=== PATIENT | male | born 1970 | race African-American/Black ===

== ENCOUNTER 2019-03-05 09:45 | Emergency (ER) | payer SELFPAY ==
[2019-03-05 11:07] VITALS: BP 200/110
--- NOTE | 2019-03-05 11:14 | UC ---
Lower Extremity/Ankle HPI - HPI Summary HPI Summary: Flareup of gout over the past week which started in his right knee and then his left knee. The right knee has improved and the left knee is improving however over the past 2 days he has had flareup in his left ankle. He has no primary care provider - History of Current Complaint Chief Complaint: UCLowerExtremity Stated Complaint: LEFT LEG PAIN Time Seen by Provider: 03/05/19 10:16 Hx Obtained From: Patient Onset/Duration: Gradual Onset Severity Initially: Mild Severity Currently: Moderate Pain Intensity: 8 Aggravating Factor(s): Standing, Ambulation Alleviating Factor(s): Rest, Elevation, OTC Meds Able to Bear Weight: Yes - both pain and difficulty. - Allergies/Home Medications Allergies/Adverse Reactions: Allergies Allergy/AdvReac Type Severity Reaction Status Date / Time No Known Allergies Allergy Verified 03/05/19 10:11 PMH/Surg Hx/FS Hx/Imm Hx - Additional Past Medical History Additional PMH: Patient has a history of gout. Previously Healthy: Yes Cardiovascular History: Hypertension - Patient has not been on any antihypertensive medication for a long time. - Surgical History Surgical History: None - Family History Known Family History: Positive: Hypertension - Social History Occupation: Employed Part-time Alcohol Use: Daily Alcohol Amount: 6-PACK/DAY Substance Use Type: None Smoking Status (MU): Light Every Day Tobacco Smoker Type: Cigarettes Amount Used/How Often: 3 CIGS/WEEK Review of Systems All Other Systems Reviewed And Are Negative: Yes Motor: Positive: Decreased ROM - Due to flare up of gout in both knees and left ankle Neurovascular: Positive: Negative Musculoskeletal: Positive: Arthralgia, Decreased ROM, Other: - Right knee swelling has improved and is normal temperature and color, left knee is still swollen but improving, left ankle is now swollen, warm and tender. Neurological: Positive: Negative Is Patient Immunocompromised?: No Physical Exam Triage Information Reviewed: Yes Appearance: Well-Appearing, Well-Nourished, Pain Distress - Pain in legs and left ankle with walking Vital Signs: Initial Vital Signs Temp 98.2 F 03/05/19 10:12 Pulse 80 03/05/19 10:12 Resp 16 03/05/19 10:12 BP 206/114 03/05/19 10:12 Pulse Ox 100 03/05/19 10:12 Vital Signs Reviewed: Yes Musculoskeletal: Positive: Strength Intact, ROM Limited @ - ROM limited due to swelling and pain left ankle secondary to his typical gout flareup. Left knee is mildly warm to touch but improved, left knee is almost back to normal., Other : Neurological: Positive: Alert, Muscle Tone Normal - Good periph pulses, neurosensation and cap refill. Left ankle warm, red, tedner and swollen. Skin Exam: Other - See notes Lower Extremity Course/Dx - Course Course Of Treatment: Pt fairly comfortable here. I discussed the BP with pt and encouraged him to follow up this week at the [facility] clinic within the next week. After discussion with Dr. Valencia and due to the pt's elevated BP, I am going to start him on Procardia XL 30mg daily. For the Gout I am starting him on Colchicine - Differential Dx/Diagnosis Provider Diagnosis: Gout, Elevated blood pressure reading Discharge - Sign-Out/Discharge Documenting (check all that apply): Patient Departure All imaging exams completed and their final reports reviewed: No Studies - Discharge Plan Condition: Fair Disposition: HOME Prescriptions: Colchicine* [Colcrys*] 0.6 mg PO DAILY 7 Days #17 tab NIFEdipine ER TAB* [Procardia Xl TAB*] 30 mg PO DAILY 7 Days #7 tab.xl Patient Education Materials: Low Purine Diet (ED), Gout (ED), Hypertension (ED) Forms: *Work Release Referrals: No Primary Care Phys,NOPCP [Primary Care Provider] - [facility] [Outside] Additional Instructions: Elevate your foot as much as possible, definite follow-up at the [facility] for treatment of your elevated blood pressure and recheck of your gout. Follow-up with [facility], call tomorrow morning and make an appointment to establish care locally. If you are unable to get in with [facility] done a definite follow-up and [facility]. - Billing Disposition and Condition Condition: FAIR Disposition: Home - Attestation Statements Provider Attestation: Per institutional requirements, I have reviewed the chart, however, I was not consulted specifically or made aware of this patient by the midlevel provider. I did not personally evaluate, interact with , or disposition this patient.
== END 2019-03-05 11:26 | disposition home or self-care (01) ==
LOC: UCCORT 09:45
DX: M10.9 Gout, unspecified (principal); R03.0 Elevated blood-pressure reading, without diagnosis of hypertension; F17.210 Nicotine dependence, cigarettes, uncomplicated
CPT/HCPCS: 99202; G0463